=== PATIENT | female | born 1975 | race Caucasian/White ===

== ENCOUNTER → 2018-08-26 | Outpatient (CLI) | payer BC ==
[~2018-08-26] MED LIST: IBU-6600 MG PO; MOTRIN 800800 MG/TAB PO; NORCO 325 MG-51 TAB PO; PERCOCET 325 MG1 TA2 PO; ZOFRAN 4MG T4 MG/TAB PO
== END ==
LOC: MHCPAIN 10:51
DX: G89.29 Other chronic pain (principal); M54.12 Radiculopathy, cervical region; M47.812 Spondylosis without myelopathy or radiculopathy, cervical region; R51 Headache
CPT/HCPCS: G0463

== ENCOUNTER → 2018-11-03 | Outpatient (CLI) | payer BC | LOC: MHCPAIN 09:44 | DX: G89.29 Other chronic pain (principal); M54.12 Radiculopathy, cervical region; R51 Headache; M47.812 Spondylosis without myelopathy or radiculopathy, cervical region | CPT/HCPCS: G0463 ==

== ENCOUNTER → 2020-04-11 | Outpatient (CLI) | payer BC | LOC: COL.RAD 06:11 | DX: K21.9 Gastro-esophageal reflux disease without esophagitis (principal) | CPT/HCPCS: A9537; J2805 ==

== ENCOUNTER 2020-04-19 07:17 | Day surgery (SDC) | payer BC ==
[~2020-04-19] VITALS: Ht 157.5 cm; Wt 49.8 kg
[2020-04-19 07:50] VITALS: BP 99/57; PULSE 77; TEMP 97.6
[2020-04-19] MEDS ORDERED: EFFEXOR-XR150 MG PO (07:55)
[2020-04-19] MEDS ORDERED: TOPAMAX 100MG100 M1 PO (07:56)
--- NOTE | 2020-04-19 07:59 | NUR ---
TO RM AT 0730- CALL LIGHT IN REACH
[2020-04-19] MEDS ORDERED: NORCO 325 MG-51 TAB PO (10:02)
[2020-04-19 11:00] VITALS: BP 108/71; PULSE 82; TEMP 98.2
--- NOTE | 2020-04-19 11:00 | NUR ---
TO RM 1 PER CART FROM PACU. ALERT ORIENTED X3, TALKING TO STAFF. DRESSINGS CLEAN DRY INTACT. DENIES NAUSEA. C/O PAIN 3/10 ABDOMINAL PAIN .
[2020-04-19 11:15] VITALS: BP 111/69; PULSE 75
--- NOTE | 2020-04-19 11:15 | NUR ---
RECEIVED WATER AND CRACKERS.
[2020-04-19 11:30] VITALS: BP 111/69; PULSE 72
--- NOTE | 2020-04-19 11:30 | NUR ---
C/O INCREASED PAIN 6-09/24. RECEIVED NORCO 5MG PO 1 TAB.
--- NOTE | 2020-04-19 11:40 | NUR ---
DR BREWER INTO TALK WITH PATIENT.
[2020-04-19 11:45] VITALS: BP 110/65; PULSE 73
--- NOTE | 2020-04-19 11:45 | NUR ---
PATIENT RESTING QUIETLY.
--- NOTE | 2020-04-19 12:00 | NUR ---
AMBULATED TO BATHROOM, BUT COULD NOT VOID. PATIENT WANTING TO GO HOME. PATIENT VOIDED PRIOR TO SURGERY. DR BREWER CALLED, AND OK'D TO GO HOME. INFORMED PATIENT IF UNABLE TO VOID AT HOME SHE WOULD NEED TO COME BACK TO ER.
--- NOTE | 2020-04-19 12:20 | NUR ---
RECEIVED DISCHARGE INSTRUCTIONS AND VERBALIZED UNDERSTANDING. DISCONTINUED IV AND INT- CATHETER INTACT. INSTRUCTED PATIENT TO CALL IF SHE NEEDED ASSISTANCE. PATIENT GETTING DRESSED.
--- NOTE | 2020-04-19 12:35 | NUR ---
DISCHARGED PER WC BY NURSING STAFF TO PRIVATE CAR IN CARE OF
== END 2020-04-19 12:51 | disposition home or self-care (01) ==
LOC: SDCO 07:17
DX: K81.1 Chronic cholecystitis (principal); J45.909 Unspecified asthma, uncomplicated; G43.909 Migraine, unspecified, not intractable, without status migrainosus; Z20.822 Contact with and (suspected) exposure to COVID-19; Z79.899 Other long term (current) drug therapy; Z88.5 Allergy status to narcotic agent
CPT/HCPCS: J0690; J1100; J1885; J2175; J2310; J2405; J2704; J3010; J7120